=== PATIENT | male | born 1955 | race Caucasian/White ===

== ENCOUNTER 2016-09-17 10:09 | Emergency (ER) | payer OTHER ==
[2016-09-17] MEDS ORDERED: ASPIRIN 81 MG TABLET, CHEWABLE PO ONE (10:47)
--- NOTE | 2016-09-17 10:51 | ER Document Report ---
ED Medical Screen (RME) - General Chief Complaint: Irregular Pulse Stated Complaint: HEART PROBLEMS Time seen by provider: 10:47 Mode of Arrival: Ambulatory Information source: Patient Notes: 60-year-old male presents to ED after he was said to the emergency room from Dr. Brown. While at Dr. Brown's office his EKG showed a atrial flutter with a history of A. fib. He was there on his regular appointment. Patient did state that yesterday and today he had felt "yucky". He states that his whole family had some chronic illness and that he has an ileostomy and usually he needs to get up 3 times a night to empty this ileostomy last night he got up at least 6 times to empty. Liquid stools. He states he is not on any blood thinners or aspirin at home. According to Dr. Brown's note he needs to be started on blood thinners and he does not want him to be cardioverted but he is already converted himself. I have greeted and performed a rapid initial assessment of this patient. A comprehensive ED assessment and evaluation of the patient, analysis of test results and completion of medical decision making process will be conducted by an additional ED providers. TRAVEL OUTSIDE OF THE [place] IN LAST 30 DAYS: No - Related Data Allergies/Adverse Reactions: No Known Allergies Allergy (Verified 09/17/16 10:19) Past Medical History - Social History Family history: Reviewed & Not Pertinent - Past Medical History Cardiac Medical History: Reports: Hx Atrial Fibrillation - Due to chemotherapy, Hx Hypertension Denies: Hx Heart Attack Pulmonary Medical History: Denies: Hx Asthma, Hx Bronchitis, Hx COPD, Hx Pneumonia Neurological Medical History: Denies: Hx Seizures Endocrine Medical History: Reports: Hx Diabetes Mellitus Type 2 Renal/ Medical History: Denies: Hx Peritoneal Dialysis Malignancy Medical History: Reports Hx Colorectal Cancer GI Medical History: Denies: Hx Hiatal Hernia, Hx Ulcer Musculoskeltal Medical History: Reports Hx Arthritis Psychiatric Medical History: Reports: Hx Depression Infectious Medical History: Past Surgical History: Reports: Hx Bowel Diversion - April 2013 multiple abdominal surgeries and bowel resections with ileost, Hx Bowel Surgery - Colorectal mass resection about 4 years ago with colostomy., Hx Colostomy, Hx Ileostomy. Denies: Hx Open Heart Surgery, Hx Pacemaker - Immunizations Immunizations up to date: Yes Hx Diphtheria, Pertussis, Tetanus Vaccination: Yes Physical Exam - Vital signs Vitals: Temp Pulse Resp BP Pulse Ox 97.5 F 73 26 H 149/76 H 99 09/17/16 10:19 09/17/16 10:19 09/17/16 10:19 09/17/16 10:19 09/17/16 10:19 Course - Vital Signs Vital signs: Temp Pulse Resp BP Pulse Ox 97.5 F 73 26 H 149/76 H 99 09/17/16 10:19 09/17/16 10:19 09/17/16 10:19 09/17/16 10:19 09/17/16 10:19
[2016-09-17] MEDS ORDERED: ENOXAPARIN SODIUM INJ 80 MG/0.8 ML DISP.SYRIN SUBCUT SCH (11:15)
[2016-09-17 11:21] LABS: ABSOLUTE BASOPHILS # (AUTO) 0.1 10^3/uL (0.0-0.2); ABSOLUTE EOSINOPHILS # (AUTO) 0.1 10^3/uL (0.0-0.6); ABSOLUTE LYMPHOCYTES (AUTO) 1.6 10^3/uL (0.5-4.7); ABSOLUTE MONOCYTES (AUTO) 0.8 10^3/uL (0.1-1.4); ABSOLUTE NEUT (AUTO) 8.3 10^3/uL (1.7-8.2); BASOPHILS % (AUTO) 0.7 % (0-2); EOSINOPHILS % (AUTO) 1.2 % (0-6); HEMATOCRIT 43.8 % (37.9-51.0); HEMOGLOBIN 14.5 g/dL (13.5-17.0); HGB HCT DIFFERENCE -0.3; LYMPHOCYTES % (AUTO) 14.7 % (13-45); MEAN CORPUSCULAR HEMOGLOBIN 29.5 pg (27.0-33.4); MEAN CORPUSCULAR VOLUME 89 fl (80-97); MONOCYTES % (AUTO) 7.1 % (3-13); RED CELL DISTRIBUTION WIDTH 12.9 % (11.5-14.0); SEGMENTED NEUTROPHILS % (AUTO) 76.3 % (42-78); WHITE BLOOD COUNT 10.9 10^3/uL (4.0-10.5)
[2016-09-17 11:23] LABS: PROTHROMBIN TIME 11.6 SEC (11.4-15.4)
[2016-09-17 11:36] LABS: ALANINE AMINOTRANSFERASE 41 U/L (21-72); ALBUMIN 4.6 g/dL (3.5-5.0); ALKALINE PHOSPHATASE 104 U/L (38-126); ANION GAP 13 (5-19); ASPARTATE AMINO TRANSFERASE 33 U/L (17-59); BILIRUBIN,DIRECT 0.3 mg/dL (0.0-0.4); BILIRUBIN,TOTAL 0.3 mg/dL (0.2-1.3); BLOOD UREA NITROGEN 19 mg/dL (7-20); CALCIUM 10.1 mg/dL (8.4-10.2); CARBON DIOXIDE 25 mmol/L (22-30); CHLORIDE 105 mmol/L (98-107); CREATINE KINASE 135 U/L (55-170); GLUCOSE 110 mg/dL (75-110); MAGNESIUM 2.2 mg/dL (1.6-2.3); POTASSIUM 4.3 mmol/L (3.6-5.0); SODIUM 143.1 mmol/L (137-145); TOTAL PROTEIN 8.3 g/dL (6.3-8.2)
--- NOTE | 2016-09-17 11:37 | ER Document Report ---
ED General - General Chief Complaint: Irregular Pulse Stated Complaint: HEART PROBLEMS Time seen by provider: 11:00 Mode of Arrival: Ambulatory Information source: Patient Notes: 60-year-old male referred from Dr. Pineda's office for atrial flutter with request for admission and anticoagulation and echocardiogram. The patient has a history of postoperative atrial fibrillation for which she was on anticoagulation along with metoprolol and Cardizem ultimately converted back to sinus rhythm and has not been on anticoagulation and about 3 years. He continues on Cardizem ER 180 mg every morning and metoprolol 25 mg twice a day. 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 The patient reports several family members have nausea vomiting and diarrhea but the patient has not noted any such symptoms himself. He reports he had nonproductive cough a few weeks ago they attributed to viral syndrome or flu but says the cough is better now he denies fever, chills, chest pain, abdominal pain, back pain, hematemesis, blood or black stool in his ileostomy bag. He has had no sensation of fast slow or irregular heartbeat. He reports no other cardiac problems Physical Exam: General: Alert, appears well. HEENT: Normocephalic. Atraumatic. PERRLA. Extraocular movements intact. Oropharynx clear. Neck: Supple. Non-tender. Respiratory: No respiratory distress. Clear and equal breath sounds bilaterally. Cardiovascular: Regular rate and rhythm. Abdominal: Bowel sounds positive soft nontender nondistended no guarding rebound rigidity ileostomy site appears healthy well-healed midline incision Back: Non-tender. No deformity or step off. 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 Normal Mood. Skin: Warm. Dry. Normal color. TRAVEL OUTSIDE OF THE [place] IN LAST 30 DAYS: No - Related Data Allergies/Adverse Reactions: No Known Allergies Allergy (Verified 09/17/16 10:19) Past Medical History - General Information source: Patient - Social History Smoking Status: Former Smoker Family History: Reviewed & Not Pertinent Patient has suicidal ideation: No Patient has homicidal ideation: No - Past Medical History Cardiac Medical History: Reports: Hx Atrial Fibrillation - Due to chemotherapy, Hx Hypertension Denies: Hx Heart Attack Pulmonary Medical History: Denies: Hx Asthma, Hx Bronchitis, Hx COPD, Hx Pneumonia Neurological Medical History: Denies: Hx Seizures Endocrine Medical History: Reports: Hx Diabetes Mellitus Type 2 - Reports diet- controlled Renal/ Medical History: Denies: Hx Peritoneal Dialysis Malignancy Medical History: Reports Hx Colorectal Cancer - Status post postchemotherapy radiation and colectomy GI Medical History: Denies: Hx Hiatal Hernia, Hx Ulcer Musculoskeltal Medical History: Reports Hx Arthritis Psychiatric Medical History: Reports: Hx Depression Infectious Medical History: Past Surgical History: Reports: Hx Bowel Diversion - April 2013 multiple abdominal surgeries and bowel resections with ileost, Hx Bowel Surgery - Colorectal mass resection about 4 years ago with colostomy., Hx Colostomy, Hx Ileostomy, Other - Patient had left chest port with "removal due to clot. Denies: Hx Open Heart Surgery, Hx Pacemaker - Immunizations Immunizations up to date: Yes Hx Diphtheria, Pertussis, Tetanus Vaccination: Yes Review of Systems - Review of Systems Constitutional: denies: Chills, Fever EENT: denies: Ear pain, Nose pain, Throat pain Cardiovascular: denies: Chest pain, Palpitations, Dyspnea, Syncope Respiratory: denies: Cough, Short of breath Gastrointestinal: denies: Abdominal pain, Diarrhea, Nausea, Vomiting Genitourinary: denies: Burning, Flank pain Musculoskeletal: denies: Back pain, Muscle pain, Leg swelling Skin: denies: Rash Hematologic/Lymphatic: denies: Swollen glands Neurological/Psychological: denies: Weakness, Numbness Physical Exam - Vital signs Vitals: Temp Pulse Resp BP Pulse Ox 97.5 F 73 26 H 149/76 H 99 09/17/16 10:19 09/17/16 10:19 09/17/16 10:19 09/17/16 10:19 09/17/16 10:19 Course - Re-evaluation Re-evalutation: 09/17/16 12:01 Patient's potassium and magnesium are normal. He remained in sinus rhythm during his stay.. I discussed case with Dr. Pineda and he is comfortable with discharge. He requested we place patient on a Holter monitor and then he will follow up with the patient tomorrow and he requests that we not start the patient on any other anticoagulation until he has had a chance to review the Holter monitor. Patient is agreeable. - Vital Signs Vital signs: Temp Pulse Resp BP Pulse Ox 97.5 F 73 18 144/81 H 100 09/17/16 10:19 09/17/16 10:19 09/17/16 11:07 09/17/16 11:07 09/17/16 11:07 - Laboratory Result Diagrams: 09/17/16 11:10 09/17/16 11:10 Laboratory results interpreted by me: 09/17/16 09/17/16 11:10 11:10 WBC 10.9 H Absolute Neutrophils 8.3 H Creatinine 1.30 H Est GFR (Non-Af Amer) 56 L Total Protein 8.3 H - Diagnostic Test Radiology reviewed: Image reviewed, Reports reviewed - EKG Interpretation by Me Additional EKG results interpreted by me: 09/17/16 11:39 EKG reviewed by myself here shows sinus rhythm at 73 no acute changes EKG from office shows atrial flutter ventricular rate of 89 no acute changes Discharge - Discharge Clinical Impression: Atrial fib/flutter, transient Condition: Stable Disposition: HOME, SELF-CARE Instructions: Atrial Fibrillation ([facility]) Additional Instructions: Return to emergency department for chest pain, shortness of breath, or any sensation of fast, slow, or irregular heartbeat Referrals: RONDA PINEDA MD [EMERITUS] - Follow up tomorrow
[2016-09-17 11:48] LABS: CREATINE KINASE MB 1.92 ng/mL (<4.55)
[2016-09-17 11:49] LABS: TROPONIN I < 0.012 ng/mL
[2016-09-17] MEDS ORDERED: ENOXAPARIN SODIUM INJ 80 MG/0.8 ML DISP.SYRIN SUBCUT ONE (12:30)
[2016-09-17 14:08] VITALS: BP 137/79
--- NOTE | 2016-09-18 08:03 | EKG REPORT ---
SEVERITY:- OTHERWISE NORMAL ECG - SINUS RHYTHM BORDERLINE RIGHT AXIS DEVIATION : Confirmed by: Reza Brown MD 18-Sep-2016 08:02:24
== END 2016-09-17 13:00 | disposition home or self-care (01) ==
LOC: ER 10:09
DX: I48.91 Unspecified atrial fibrillation (principal); I48.92 Unspecified atrial flutter; R00.2 Palpitations; Z79.01 Long term (current) use of anticoagulants; Z79.899 Other long term (current) drug therapy; R05 Cough; Z87.891 Personal history of nicotine dependence
CPT/HCPCS: 93005; 99285; 96372; 36415; 82553; 82550; 83735; 84443; 85025; 85610; 85730; 80053; 84484; 71020; 93010; J1650

== ENCOUNTER → 2017-02-01 | Outpatient (CLI) | payer OTHER ==
[2017-02-01 08:35] LABS: ANION GAP 11 (5-19); BLOOD UREA NITROGEN 16 mg/dL (7-20); CALCIUM 10.3 mg/dL (8.4-10.2); CARBON DIOXIDE 26 mmol/L (22-30); CHLORIDE 104 mmol/L (98-107); CHOLESTEROL 175.86 mg/dL (0-200); CREATININE RESULT 1.09 mg/dL (0.52-1.25); Direct HDL 69 mg/dL (>40); GLUCOSE 118 mg/dL (75-110); POTASSIUM 4.8 mmol/L (3.6-5.0); SODIUM 140.8 mmol/L (137-145); TRIGLYCERIDES 159 mg/dL (<150)
[2017-02-01 08:45] LABS: DIRECT LDL 77 mg/dL (<100)
[2017-02-01 08:46] LABS: VLDL CHOLESTEROL 31.8 mg/dL (10-31)
== END ==
LOC: OD 07:25
PROVIDERS: ATTEND Internal Medicine Cardiovascular Disease
DX: E78.00 Pure hypercholesterolemia, unspecified (principal); Z79.899 Other long term (current) drug therapy
CPT/HCPCS: 36415; 80048; 80061

== ENCOUNTER → 2017-04-02 | Outpatient (CLI) | payer OTHER ==
--- NOTE | 2017-04-02 12:51 | RADIOLOGY REPORT (SQ) ---
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 Oral contrast. Images reviewed with lung, soft tissue, and bone win dows. Reconstructed coronal and sagittal MPR images reviewed. Delayed images for evaluation of the ur inary system also acquired. All images stored on PACS. All CT scanners at this facility use dose modulation, iterative reconstruction, and/or weight based d osing when appropriate to reduce radiation dose to as low as reasonably achievable (ALARA). [facility]: Dose Right [facility]: CareDose [facility]: Dose Right [facility]: Teradose 4D [facility]: [employer] CONTRAST TYPE AND DOSE: contrast/concentration: Isovue 370.00 mg/ml; Total Contrast Delivered: 78.0 ml; Total Saline Delivered: 67.0 ml RENAL FUNCTION: Creatinine 1.2 RADIATION DOSE: Up-to-date CT equipment and radiation dose reduction techniques were employed. CTDIv ol: 4.1 - 4.8 mGy. DLP: 439 mGy-cm.. LIMITATIONS: None. FINDINGS: LOWER CHEST: No significant findings. No nodules or infiltrates. LIVER: Hepatomegaly. No masses. No dilated ducts. SPLEEN: Normal size. No focal lesions. PANCREAS: No masses. No significant calcifications. No adjacent inflammation or peripancreatic fluid collections. Pancreatic duct not dilated. GALLBLADDER: Multiple small gallstones are present. There is no ductal dilatation. ADRENAL GLANDS: No significant masses or asymmetry. RIGHT KIDNEY AND URETER: No solid masses. No significant calcifications. No hydronephrosis or hyd roureter. LEFT KIDNEY AND URETER: No solid masses. No significant calcifications. No hydronephrosis or hydr oureter. AORTA AND VESSELS: No aneurysm. No dissection. Renal arteries, SMA, celiac without stenosis. RETROPERITONEUM: No retroperitoneal adenopathy, hemorrhage or masses. BOWEL AND PERITONEAL CAVITY: The patient has a patent ileostomy. The colon is been resected. The pa tient retains a small segment of rectum. APPENDIX: Surgically absent. PELVIS: No mass. No free fluid. Normal bladder. ABDOMINAL WALL: No masses. No hernias. Ileostomy. BONES: Lumbar degenerative disc changes at L3-4. No osseous lesions are seen. OTHER: No other significant finding. IMPRESSION: 1. Hepatomegaly. 2. Cholelithiasis with no ductal dilatation. 3. Patent ileostomy. 4. Osseous findings as described. TECHNICAL DOCUMENTATION: JOB ID: [id number] Quality ID # [id number]: Final reports with documentation of one or more dose reduction techniques (e.g., Au tomated exposure control, adjustment of the mA and/or kV according to patient size, use of iterative reconstruction technique) 2010 [employer]- All Rights Reserved
== END ==
LOC: RAD 09:17
PROVIDERS: ATTEND Surgery
DX: Z85.048 Personal history of other malignant neoplasm of rectum, rectosigmoid junction, and anus (principal); Z93.2 Ileostomy status; K80.20 Calculus of gallbladder without cholecystitis without obstruction; R16.0 Hepatomegaly, not elsewhere classified
CPT/HCPCS: 74177; 82565

== ENCOUNTER → 2018-08-18 | Outpatient (CLI) | payer OTHER ==
[2018-08-18 08:47] LABS: ANION GAP 10 (5-19); BLOOD UREA NITROGEN 20 mg/dL (7-20); CALCIUM 9.8 mg/dL (8.4-10.2); CARBON DIOXIDE 25 mmol/L (22-30); CHLORIDE 102 mmol/L (98-107); GLUCOSE 123 mg/dL (75-110); POTASSIUM 4.9 mmol/L (3.6-5.0); SODIUM 137.2 mmol/L (137-145)
== END ==
LOC: OD 07:16
PROVIDERS: ATTEND Internal Medicine Cardiovascular Disease
DX: I10 Essential (primary) hypertension (principal)
CPT/HCPCS: 36415; 80048

== ENCOUNTER 2018-10-06 10:21 | Emergency (ER) | payer OTHER ==
--- NOTE | 2018-10-06 10:55 | ER Document Report ---
ED Medical Screen (RME) - General Chief Complaint: High Blood Pressure Stated Complaint: CHEST PAIN Time Seen by Provider: 10/06/18 10:52 Primary Care Provider: RONDA PINEDA MD [Primary Care Provider] - Follow up as needed Mode of Arrival: Ambulatory Information source: Patient Notes: Patient was at a pain management appointment and was noted to have an elevated blood pressure reading of 170/110 with a low heart rate of 59. Patient states that the time he was not having any symptoms. Patient was told that he should come here to be evaluated for possible stroke although patient denies any weakness headache or strokelike symptoms at this time. Patient denies any chest pain symptoms at this time. I have greeted and performed a rapid initial assessment of this patient. A comprehensive ED assessment and evaluation of the patient, analysis of test results and completion of the medical decision making process will be conducted by additional ED providers. TRAVEL OUTSIDE OF THE [place] IN LAST 30 DAYS: No - Related Data Allergies/Adverse Reactions: No Known Allergies Allergy (Verified 10/06/18 10:48) Past Medical History - Social History Chew tobacco use (# tins/day): No Frequency of alcohol use: None Drug Abuse: None Family history: Reviewed & Not Pertinent - Past Medical History Cardiac Medical History: Reports: Hx Atrial Fibrillation - Due to chemotherapy, Hx Hypertension Denies: Hx Heart Attack Pulmonary Medical History: Denies: Hx Asthma, Hx Bronchitis, Hx COPD, Hx Pneumonia Neurological Medical History: Denies: Hx Seizures Endocrine Medical History: Reports: Hx Diabetes Mellitus Type 2 - Reports diet- controlled Renal/ Medical History: Denies: Hx Peritoneal Dialysis Malignancy Medical History: Reports Hx Colorectal Cancer - Status post postchemotherapy radiation and colectomy GI Medical History: Denies: Hx Hiatal Hernia, Hx Ulcer Musculoskeltal Medical History: Reports Hx Arthritis Psychiatric Medical History: Reports: Hx Depression Infectious Medical History: Past Surgical History: Reports: Hx Bowel Diversion - April 2013 multiple abdominal surgeries and bowel resections with ileost, Hx Bowel Surgery - Colorectal mass resection about 4 years ago with colostomy., Hx Colostomy, Hx Ileostomy, Other - Patient had left chest port with "removal due to clot. Denies: Hx Open Heart Surgery, Hx Pacemaker - Immunizations Immunizations up to date: Yes Hx Diphtheria, Pertussis, Tetanus Vaccination: Yes Physical Exam - Vital signs Vitals: Temp Pulse Resp BP Pulse Ox 98.1 F 57 L 16 145/66 H 100 10/06/18 10:27 10/06/18 10:27 10/06/18 10:27 10/06/18 10:27 10/06/18 10:27 - Cardiovascular Rhythm: Bradycardia Heart sounds: S1 appreciated, S2 appreciated Course - Vital Signs Vital signs: Temp Pulse Resp BP Pulse Ox 98.1 F 57 L 16 145/66 H 100 10/06/18 10:27 10/06/18 10:27 10/06/18 10:27 10/06/18 10:27 10/06/18 10:27 Doctor's Discharge - Discharge Referrals: RONDA PINEDA MD [Primary Care Provider] - Follow up as needed
[2018-10-06 11:15] LABS: ABSOLUTE BASOPHILS # (AUTO) 0.1 10^3/uL (0.0-0.2); ABSOLUTE EOSINOPHILS # (AUTO) 0.1 10^3/uL (0.0-0.6); ABSOLUTE LYMPHOCYTES (AUTO) 1.5 10^3/uL (0.5-4.7); ABSOLUTE MONOCYTES (AUTO) 0.5 10^3/uL (0.1-1.4); ABSOLUTE NEUT (AUTO) 7.9 10^3/uL (1.7-8.2); BASOPHILS % (AUTO) 0.6 % (0-2); EOSINOPHILS % (AUTO) 1.2 % (0-6); HEMOGLOBIN 12.4 g/dL (13.5-17.0); MEAN CORPUSCULAR HGB CONC 33.4 g/dL (32.0-36.0); MEAN CORPUSCULAR VOLUME 87 fl (80-97); MONOCYTES % (AUTO) 5.3 % (3-13); PLATELET COUNT 390 10^3/uL (150-450); RED BLOOD COUNT 4.26 10^6/uL (4.35-5.55); RED CELL DISTRIBUTION WIDTH 12.7 % (11.5-14.0); SEGMENTED NEUTROPHILS % (AUTO) 77.9 % (42-78); TOTAL CELLS COUNTED % (AUTO) 100 %; WHITE BLOOD COUNT 10.2 10^3/uL (4.0-10.5)
--- NOTE | 2018-10-06 11:36 | RADIOLOGY REPORT (SQ) ---
EXAM DESCRIPTION: CHEST 2 VIEWS COMPLETED DATE/TIME: 10/06/2018 11:28 am REASON FOR STUDY: elevated bp COMPARISON: None. EXAM PARAMETERS: NUMBER OF VIEWS: two views TECHNIQUE: Digital Frontal and Lateral radiographic views of the chest acquired. RADIATION DOSE: NA LIMITATIONS: none FINDINGS: LUNGS AND PLEURA: No opacities, masses or pneumothorax. No pleural effusion. MEDIASTINUM AND HILAR STRUCTURES: No masses or contour abnormalities. HEART AND VASCULAR STRUCTURES: Heart normal size. No evidence for failure. BONES: No acute findings. HARDWARE: None in the chest. OTHER: No other significant finding. IMPRESSION: NO ACUTE RADIOGRAPHIC FINDING IN THE CHEST. TECHNICAL DOCUMENTATION: JOB ID: [id number] [employer]- All Rights Reserved Reading location - IP/workstation name: [email or web address]
[2018-10-06 11:38] LABS: ALANINE AMINOTRANSFERASE 32 U/L (21-72); ALBUMIN 4.6 g/dL (3.5-5.0); ALKALINE PHOSPHATASE 105 U/L (38-126); ANION GAP 10 (5-19); ASPARTATE AMINO TRANSFERASE 40 U/L (17-59); BILIRUBIN,DIRECT 0.3 mg/dL (0.0-0.4); BILIRUBIN,TOTAL 0.4 mg/dL (0.2-1.3); BLOOD UREA NITROGEN 38 mg/dL (7-20); CALCIUM 10.3 mg/dL (8.4-10.2); CARBON DIOXIDE 22 mmol/L (22-30); CHLORIDE 104 mmol/L (98-107); GLUCOSE 143 mg/dL (75-110); POTASSIUM 5.2 mmol/L (3.6-5.0); SODIUM 136.4 mmol/L (137-145); TOTAL PROTEIN 8.6 g/dL (6.3-8.2)
[2018-10-06] MEDS ORDERED: NORMAL SALINE 1000 ML 1,000 ML IV ONE (12:47)
--- NOTE | 2018-10-06 13:24 | ER Document Report ---
Entered by AUSTYN AYALA SCRIBE 10/06/18 1259 Acting as scribe for:HETAL MONTOYA MD ED General - General Chief Complaint: High Blood Pressure Stated Complaint: CHEST PAIN Time Seen by Provider: 10/06/18 10:52 Primary Care Provider: RONDA PINEDA MD [EMERITUS] - Follow up as needed Mode of Arrival: Ambulatory Information source: Patient, [facility] Records Notes: Patient is a 62 year old male with colorectal cancer, HTN who presents to the emergency department complaining elevated blood pressure onset this morning. Patient states he presented to pain management this morning and was found to be hypertensive with a blood pressure of 170/110 with a heart rate of 59 bpm. Patient states he was instructed to come to the emergency department for further evaluation. He states he is and has been asymptomatic. He does report working outside over the last few days where it is been quite hot, and he has not been drinking as much water as he should. At triage, his blood pressure is 145/66 which is only slightly higher than his baseline according to his history. Patient reports having nausea and vomiting 2 weeks ago which completely resolved after taking Zofran once. Patient is currently prescribed metoprolol and lisinopril. TRAVEL OUTSIDE OF THE [place] IN LAST 30 DAYS: No - Related Data Allergies/Adverse Reactions: No Known Allergies Allergy (Verified 10/06/18 10:48) Past Medical History - General Information source: Patient, [facility] Records - Social History Smoking Status: Former Smoker Cigarette use (# per day): No Chew tobacco use (# tins/day): No Smoking Education Provided: No Frequency of alcohol use: None Drug Abuse: None Lives with: Spouse/Significant other Family History: Reviewed & Not Pertinent Patient has suicidal ideation: No Patient has homicidal ideation: No - Past Medical History Cardiac Medical History: Reports: Hx Atrial Fibrillation - Due to chemotherapy, Hx Hypertension Pulmonary Medical History: Neurological Medical History: Endocrine Medical History: Reports: Hx Diabetes Mellitus Type 2 - Reports diet- controlled Malignancy Medical History: Reports Hx Colorectal Cancer - Status post postchemotherapy radiation and colectomy GI Medical History: Musculoskeletal Medical History: Reports Hx Arthritis Psychiatric Medical History: Reports: Hx Depression Infectious Medical History: Past Surgical History: Reports: Hx Bowel Diversion - April 2013 multiple abdominal surgeries and bowel resections with ileost, Hx Bowel Surgery - Colorec le mass resection about 4 years ago with colostomy., Hx Colostomy, Hx Ileostomy, Other - Patient had left chest port with "removal due to clot - Immunizations Immunizations up to date: Yes Hx Diphtheria, Pertussis, Tetanus Vaccination: Yes Review of Systems - Review of Systems Constitutional: See HPI EENT: No symptoms reported Cardiovascular: No symptoms reported Respiratory: No symptoms reported Gastrointestinal: No symptoms reported Genitourinary: No symptoms reported Male Genitourinary: No symptoms reported Musculoskeletal: No symptoms reported Skin: No symptoms reported Hematologic/Lymphatic: No symptoms reported Neurological/Psychological: No symptoms reported -: Yes All other systems reviewed and negative Physical Exam - Vital signs Vitals: Temp Pulse Resp BP Pulse Ox 98.1 F 57 L 16 145/66 H 100 10/06/18 10:10/06/18 10:10/06/18 10:10/06/18 10:10/06/18 10:27 - Notes Notes: GENERAL: Alert, interacts well. No acute distress. HEAD: Normocephalic, atraumatic. EYES: Pupils equal, round, and reactive to light. Extraocular movements intact. ENT: Oral mucosa moist, tongue midline. NECK: Full range of motion. Supple. Trachea midline. LUNGS: Clear to auscultation bilaterally, no wheezes, rales, or rhonchi. No respiratory distress. HEART: Regular rate and rhythm. No murmurs, gallops, or rubs. ABDOMEN: Soft, non-tender. Ileostomy in RLQ. Non-distended. Bowel sounds present in all 4 quadrants. No guarding, rigidity, or rebound. EXTREMITIES: Moves all 4 extremities spontaneously. No edema, radial and dorsalis pedis pulses 2/4 bilaterally. No cyanosis. NEUROLOGICAL: Alert and oriented x3. Normal speech. PSYCH: Normal affect, normal mood. SKIN: Warm, dry, normal turgor. No rashes or lesions noted. Course - Vital Signs Vital signs: Temp Pulse Resp BP Pulse Ox 98.1 F 57 L 16 145/66 H 100 10/06/18 10:27 10/06/18 10:27 10/06/18 10:27 10/06/18 10:10/06/18 10:27 - Laboratory Result Diagrams: 10/06/18 11:00 10/06/18 11:00 Laboratory results interpreted by me: 10/06/18 10/06/18 11:00 11:00 RBC 4.26 L Hgb 12.4 L Hct 37.0 L Sodium 136.4 L Potassium 5.2 H BUN 38 H Creatinine 1.87 H Est GFR ( Amer) 44 L Est GFR (Non-Af Amer) 37 L Glucose 143 H Calcium 10.3 H Total Protein 8.6 H Discharge - Discharge Clinical Impression: Dehydration, Hyperkalemia Condition: Stable Disposition: HOME, SELF-CARE Additional Instructions: Dehydration Dehydration can result from vomiting or diarrhea, fever, or decreased intake of fluids. If severe, hospitalization and intravenous fluids may be required. Most cases are treated at home with fluids by mouth. For the next 24 hours, drink lots of clear fluids. Call the doctor or return for re-examination if you become progressively weak, vomit repeatedly, or have other new symptoms. Drink plenty of water today and this evening. Try to limit potassium in your diet. Follow-up with your doctor if any problems. RETURN TO THE EMERGENCY ROOM IF ANY NEW OR WORSENING SYMPTOMS. Referrals: RONDA PINEDA MD [EMERITUS] - Follow up as needed Scribe Attestation: 10/06/18 13:57 I personally performed the services described in the documentation, reviewed and edited the documentation which was dictated to the scribe in my presence, and it accurately records my words and actions. I personally performed the services described in the documentation, reviewed and edited the documentation which was dictated to the scribe in my presence, and it accurately records my words and actions.
[2018-10-06 15:17] VITALS: BP 140/61
--- NOTE | 2018-10-06 17:39 | EKG REPORT ---
SEVERITY:- OTHERWISE NORMAL ECG - SINUS RHYTHM ATRIAL PREMATURE COMPLEX : Confirmed by: Samantha Trevino 06-Oct-2018 17:38:06
== END 2018-10-06 15:22 | disposition home or self-care (01) ==
LOC: ER 10:21
DX: E86.0 Dehydration (principal); E87.5 Hyperkalemia; I10 Essential (primary) hypertension; R07.9 Chest pain, unspecified; R11.2 Nausea with vomiting, unspecified; Z87.891 Personal history of nicotine dependence; I48.91 Unspecified atrial fibrillation; E11.9 Type 2 diabetes mellitus without complications
CPT/HCPCS: 93005; 99284; 96360; 96361; 36415; 85025; 80053; 84484; 71046; 93010; J7030

== ENCOUNTER → 2019-06-14 | Outpatient (CLI) | payer MEDICARE, OTHER ==
[2019-06-14 09:06] LABS: ANION GAP 9 (5-19); BLOOD UREA NITROGEN 17 mg/dL (7-20); CALCIUM 9.9 mg/dL (8.4-10.2); CARBON DIOXIDE 27 mmol/L (22-30); CHLORIDE 101 mmol/L (98-107); CHOLESTEROL 164.74 mg/dL (0-200); GLUCOSE 125 mg/dL (75-110); POTASSIUM 4.8 mmol/L (3.6-5.0); TRIGLYCERIDES 98 mg/dL (<150)
[2019-06-14 09:16] LABS: DIRECT LDL 79 mg/dL (<100)
== END ==
LOC: OD 07:44
PROVIDERS: ATTEND Internal Medicine Cardiovascular Disease
DX: I10 Essential (primary) hypertension (principal); E78.2 Mixed hyperlipidemia; Z79.899 Other long term (current) drug therapy
CPT/HCPCS: 36415; 80048; 80061

== ENCOUNTER → 2019-07-11 | Outpatient (CLI) | payer MEDICARE, OTHER ==
[2019-07-11 11:16] LABS: MEAN CORPUSCULAR HEMOGLOBIN 30.1 pg (27.0-33.4); MEAN CORPUSCULAR HGB CONC 35.2 g/dL (32.0-36.0); MEAN CORPUSCULAR VOLUME 86 fl (80-97); PLATELET COUNT 339 10^3/uL (150-450); RED BLOOD COUNT 3.97 10^6/uL (4.35-5.55); RED CELL DISTRIBUTION WIDTH 13.7 % (11.5-14.0); WHITE BLOOD COUNT 8.1 10^3/uL (4.0-10.5)
[2019-07-11 11:18] LABS: APPEARANCE,URINE SLIGHTLY-CLOUDY; BILIRUBIN,URINE NEGATIVE (NEGATIVE); COLOR,URINE YELLOW; GLUCOSE, URINE >=500 mg/dL (NEGATIVE); KETONES,URINE NEGATIVE (NEGATIVE); LEUKOCYTE ESTERASE,URINE NEGATIVE (NEGATIVE); NITRITE,URINE NEGATIVE (NEGATIVE); PROTEIN,URINE NEGATIVE (NEGATIVE); URINE SPECIFIC GRAVITY 1.009; UROBILINOGEN,URINE NEGATIVE mg/dL (<2.0)
[2019-07-11 11:46] LABS: ALBUMIN 4.5 g/dL (3.5-5.0); ALKALINE PHOSPHATASE 102 U/L (38-126); ANION GAP 11 (5-19); ASPARTATE AMINO TRANSFERASE 26 U/L (17-59); BILIRUBIN,DIRECT 0.3 mg/dL (0.0-0.4); BILIRUBIN,TOTAL 0.3 mg/dL (0.2-1.3); BLOOD UREA NITROGEN 20 mg/dL (7-20); CARBON DIOXIDE 25 mmol/L (22-30); CHLORIDE 101 mmol/L (98-107); GLUCOSE 122 mg/dL (75-110); POTASSIUM 4.8 mmol/L (3.6-5.0); TOTAL PROTEIN 8.2 g/dL (6.3-8.2)
== END ==
LOC: OD 10:46
PROVIDERS: ATTEND Internal Medicine Cardiovascular Disease
DX: I48.92 Unspecified atrial flutter (principal); Z79.01 Long term (current) use of anticoagulants; Z79.899 Other long term (current) drug therapy
CPT/HCPCS: 36415; 80048; 80076; 81001; 82272; 83735; 85027; 85730

== ENCOUNTER 2019-08-17 13:16 | Emergency (ER) | payer OTHER, MEDICARE ==
--- NOTE | 2019-08-17 13:29 | ER Document Report ---
ED Medical Screen (RME) - General Chief Complaint: Abnormal Lab Results Stated Complaint: ABNORMAL LABS Time Seen by Provider: 08/17/19 13:26 Primary Care Provider: RONDA PINEDA MD [Primary Care Provider] - Follow up as needed Mode of Arrival: Ambulatory Information source: Patient Notes: 63-year-old male presented to ED for elevated potassium. He is being treated fo r A. fib he was in A. fib there having temporarily out of A. fib he also had high blood pressure. He was started on the liquids for the A. fib to prevent clots. He states he went to his primary care doctor had labs and they told him he had a elevated potassium and needed to come to the emergency room for evaluation. Will repeat the chemistry and CBC and then reassess patient. I have greeted and performed a rapid initial assessment of this patient. A comprehensive ED assessment and evaluation of the patient, analysis of test results and completion of medical decision making process will be conducted by an additional ED providers. TRAVEL OUTSIDE OF THE [place] IN LAST 30 DAYS: No - Related Data Allergies/Adverse Reactions: No Known Allergies Allergy (Verified 08/17/19 13:21) Past Medical History - Social History Chew tobacco use (# tins/day): No Frequency of alcohol use: None Drug Abuse: None Family history: Reviewed & Not Pertinent - Past Medical History Cardiac Medical History: Reports: Hx Atrial Fibrillation - Due to chemotherapy, Hx Hypertension Denies: Hx Heart Attack Pulmonary Medical History: Denies: Hx Asthma, Hx Bronchitis, Hx COPD, Hx Pneumonia Neurological Medical History: Denies: Hx Seizures Endocrine Medical History: Reports: Hx Diabetes Mellitus Type 2 - Reports diet- controlled Renal/ Medical History: Denies: Hx Peritoneal Dialysis Malignancy Medical History: Reports Hx Colorectal Cancer - Status post postchemotherapy radiation and colectomy GI Medical History: Denies: Hx Hiatal Hernia, Hx Ulcer Musculoskeltal Medical History: Reports Hx Arthritis Psychiatric Medical History: Reports: Hx Depression Infectious Medical History: Past Surgical History: Reports: Hx Bowel Diversion - April 2013 multiple abdominal surgeries and bowel resections with ileost, Hx Bowel Surgery - Colorectal mass resection about 4 years ago with colostomy., Hx Colostomy, Hx Ileostomy, Other - Patient had left chest port with "removal due to clot. Denies: Hx Open Heart Surgery, Hx Pacemaker - Immunizations Immunizations up to date: Yes Hx Diphtheria, Pertussis, Tetanus Vaccination: Yes Physical Exam - Vital signs Vitals: Temp Pulse Resp BP Pulse Ox 98.0 F 63 16 146/59 H 98 08/17/19 13:20 08/17/19 13:20 08/17/19 13:20 08/17/19 13:20 08/17/19 13:20 Course - Vital Signs Vital signs: Temp Pulse Resp BP Pulse Ox 98.0 F 63 16 146/59 H 98 08/17/19 13:20 08/17/19 13:20 08/17/19 13:20 08/17/19 13:20 08/17/19 13:20 Doctor's Discharge - Discharge Referrals: RONDA PINEDA MD [Primary Care Provider] - Follow up as needed
--- NOTE | 2019-08-17 13:36 | ER Document Report ---
ED General - General Chief Complaint: Abnormal Lab Results Stated Complaint: ABNORMAL LABS Time Seen by Provider: 08/17/19 13:26 Primary Care Provider: RONDA PINEDA MD [EMERITUS] - Follow up as needed Mode of Arrival: Ambulatory Notes: 63-year-old male presents with abnormal labs. He has no symptoms. He has an ileostomy and normal urinary anatomy and says that 2 days ago he had about 2 days of solid liquid ostomy output that he could not keep up with orally. He hydrated well and then last night did not drink as much. Today he is only had ice tea. He went for routine labs "to check my blood thinner" and was sent here for incidental hyperkalemia with acute kidney injury. No trouble starting and stopping urine stream no back pain no fever. Does not take a diuretic. TRAVEL OUTSIDE OF THE [place] IN LAST 30 DAYS: No - Related Data Allergies/Adverse Reactions: No Known Allergies Allergy (Verified 08/17/19 13:21) Past Medical History - General Information source: Patient - Social History Smoking Status: Never Smoker Chew tobacco use (# tins/day): No Frequency of alcohol use: None Drug Abuse: None Family History: Reviewed & Not Pertinent Patient has suicidal ideation: No Patient has homicidal ideation: No - Past Medical History Cardiac Medical History: Reports: Hx Atrial Fibrillation - Due to chemotherapy, Hx Hypertension Denies: Hx Heart Attack Pulmonary Medical History: Denies: Hx Asthma, Hx Bronchitis, Hx COPD, Hx Pneumonia Neurological Medical History: Denies: Hx Seizures Endocrine Medical History: Reports: Hx Diabetes Mellitus Type 2 - Reports diet- controlled Renal/ Medical History: Denies: Hx Peritoneal Dialysis Malignancy Medical History: Reports Hx Colorectal Cancer - Status post postchemotherapy radiation and colectomy GI Medical History: Denies: Hx Hiatal Hernia, Hx Ulcer Musculoskeletal Medical History: Reports Hx Arthritis Psychiatric Medical History: Reports: Hx Depression Infectious Medical History: Past Surgical History: Reports: Hx Bowel Diversion - April 2013 multiple abdominal surgeries and bowel resections with ileost, Hx Bowel Surgery - Colore ctal mass resection about 4 years ago with colostomy., Hx Colostomy, Hx Ileostomy, Other - Patient had left chest port with "removal due to clot. Denies: Hx Open Heart Surgery, Hx Pacemaker - Immunizations Immunizations up to date: Yes Hx Diphtheria, Pertussis, Tetanus Vaccination: Yes Review of Systems - Review of Systems Notes: REVIEW OF SYSTEMS GEN: Denies fever, chills, weight loss ENT: Denies sore throat, nasal discharge, ear pain EYES: Denies blurry vision, eye pain, discharge CV: Denies chest pain, palpitations, edema RESP: Denies cough, shortness of breath, wheezing GI: Creased ostomy output a MSK: Denies joint pain/swelling, edema, SKIN: Denies rash, skin lesions LYMPH: Denies swollen glands/lymph nodes NEURO: Denies headache, focal weakness or numbness, dizziness PSYCH: Denies depression, suicidal or homicidal ideation PHYSICAL EXAMINATION General: No acute distress, well-nourished Head: Atraumatic, normocephalic ENT: Mouth normal, oropharynx moist, no exudates or tonsillar enlargement Eyes: Conjunctiva normal, pupils equal, lids normal Neck: No JVD, supple, no guarding CVS: Normal rate, regular rhythm, no murmurs Resp: No resp distress, equal and normal breath sounds bilaterally GI: Healthy pink ileostomy Ext: No deformities, no edema, normal range of motion in upper and lower ext Back: No CVA or midline TTP Skin: No rash, warm Lymphatic: No lymphadeopathy noted Neuro: Awake, alert. Face symmetric. GCS 15. Physical Exam - Vital signs Vitals: Temp Pulse Resp BP Pulse Ox 98.0 F 63 16 146/59 H 98 08/17/19 13:20 08/17/19 13:20 08/17/19 13:20 08/17/19 13:20 08/17/19 13:20 Course - Re-evaluation Re-evalutation: 08/17/19 13:36 Incidental acute kidney injury with hyperkalemia We will check EKG to rule out changeshemodynamically stable Likely secondary to prerenal azotemia/dehydration from increased ostomy output and inadequate oral intake. - Vital Signs Vital signs: Temp Pulse Resp BP Pulse Ox 98.0 F 63 16 146/59 H 98 08/17/19 13:20 08/17/19 13:20 08/17/19 13:20 08/17/19 13:20 08/17/19 13:20 - Laboratory Result Diagrams: 08/17/19 13:45 08/17/19 13:45 Laboratory results interpreted by me: 08/17/19 08/17/19 13:45 13:45 RBC 4.13 L Hgb 12.3 L Hct 35.4 L Sodium 130.0 L Potassium 5.5 H Carbon Dioxide 21 L BUN 63 H Creatinine 2.74 H Est GFR ( Amer) 28 L Est GFR (MDRD) Non-Af 23 L Glucose 153 H Total Protein 8.6 H Discharge - Discharge Clinical Impression: Prerenal azotemia, Hyperkalemia Condition: Good Disposition: HOME, SELF-CARE Additional Instructions: Please follow-up with your personal doctor within 2 to 3 days for repeat lab testing specifically potassium and kidney function. Please drink plenty of f luids, avoid tea and avoid highpotassium foods such as avocado and banana Referrals: RONDA PINEDA MD [EMERITUS] - Follow up in 3-5 days
[2019-08-17 13:58] LABS: ABSOLUTE BASOPHILS # (AUTO) 0.1 10^3/uL (0.0-0.2); ABSOLUTE EOSINOPHILS # (AUTO) 0.2 10^3/uL (0.0-0.6); ABSOLUTE LYMPHOCYTES (AUTO) 1.5 10^3/uL (0.5-4.7); ABSOLUTE MONOCYTES (AUTO) 0.6 10^3/uL (0.1-1.4); ABSOLUTE NEUT (AUTO) 6.6 10^3/uL (1.7-8.2); BASOPHILS % (AUTO) 0.6 % (0-2); EOSINOPHILS % (AUTO) 2.4 % (0-6); HEMATOCRIT 35.4 % (37.9-51.0); HEMOGLOBIN 12.3 g/dL (13.5-17.0); MEAN CORPUSCULAR HEMOGLOBIN 29.8 pg (27.0-33.4); MEAN CORPUSCULAR HGB CONC 34.6 g/dL (32.0-36.0); MEAN CORPUSCULAR VOLUME 86 fl (80-97); MONOCYTES % (AUTO) 7.2 % (3-13); PLATELET COUNT 421 10^3/uL (150-450); RED BLOOD COUNT 4.13 10^6/uL (4.35-5.55); RED CELL DISTRIBUTION WIDTH 13.4 % (11.5-14.0); SEGMENTED NEUTROPHILS % (AUTO) 72.8 % (42-78); TOTAL CELLS COUNTED % (AUTO) 100 %
[2019-08-17 14:19] LABS: ALBUMIN 4.6 g/dL (3.5-5.0); ALKALINE PHOSPHATASE 117 U/L (38-126); ANION GAP 11 (5-19); ASPARTATE AMINO TRANSFERASE 22 U/L (17-59); BILIRUBIN,DIRECT 0.2 mg/dL (0.0-0.4); BILIRUBIN,TOTAL 0.2 mg/dL (0.2-1.3); BLOOD UREA NITROGEN 63 mg/dL (7-20); CALCIUM 9.6 mg/dL (8.4-10.2); CARBON DIOXIDE 21 mmol/L (22-30); CHLORIDE 98 mmol/L (98-107); GLUCOSE 153 mg/dL (75-110); POTASSIUM 5.5 mmol/L (3.6-5.0); TOTAL PROTEIN 8.6 g/dL (6.3-8.2)
[2019-08-17] MEDS ORDERED: DEXTROSE 50%-WATER 25 GM/50 ML DISP.SYRIN IV ONE (14:20)
[2019-08-17] MEDS ORDERED: INSULIN REG, HUMAN 100 UNIT/ML 3 ML VIAL (PYX) IV ONE (14:20)
[2019-08-17] MEDS ORDERED: NORMAL SALINE 1000 ML 1,000 ML IV ONE (14:21)
[2019-08-17 16:59] LABS: ANION GAP 9 (5-19); BLOOD UREA NITROGEN 60 mg/dL (7-20); CALCIUM 9.2 mg/dL (8.4-10.2); CARBON DIOXIDE 19 mmol/L (22-30); CHLORIDE 104 mmol/L (98-107); GLUCOSE 82 mg/dL (75-110); POTASSIUM 5.1 mmol/L (3.6-5.0)
[2019-08-17 17:18] VITALS: BP 133/57
--- NOTE | 2019-08-18 16:19 | EKG REPORT ---
SEVERITY:- NORMAL ECG - SINUS RHYTHM : Confirmed by: Samantha Trevino 18-Aug-2019 16:18:17
== END 2019-08-17 17:17 | disposition home or self-care (01) ==
LOC: ER 13:16
DX: E87.5 Hyperkalemia (principal); N17.9 Acute kidney failure, unspecified; R79.89 Other specified abnormal findings of blood chemistry; Z93.2 Ileostomy status; I10 Essential (primary) hypertension; E11.9 Type 2 diabetes mellitus without complications; Z85.048 Personal history of other malignant neoplasm of rectum, rectosigmoid junction, and anus; Z92.3 Personal history of irradiation; Z92.21 Personal history of antineoplastic chemotherapy
CPT/HCPCS: 93005; 99285; 36415; 85025; 87070; 93010; J3490; J1815; J7030

== ENCOUNTER → 2019-08-17 | Outpatient (CLI) | payer MEDICARE, OTHER ==
[2019-08-17 11:04] LABS: ALBUMIN 4.5 g/dL (3.5-5.0); ALKALINE PHOSPHATASE 108 U/L (38-126); ANION GAP 11 (5-19); ASPARTATE AMINO TRANSFERASE 26 U/L (17-59); BILIRUBIN,TOTAL 0.3 mg/dL (0.2-1.3); BLOOD UREA NITROGEN 68 mg/dL (7-20); CARBON DIOXIDE 20 mmol/L (22-30); CHLORIDE 98 mmol/L (98-107); GLUCOSE 136 mg/dL (75-110); TOTAL PROTEIN 8.2 g/dL (6.3-8.2)
[2019-08-17 11:12] LABS: POTASSIUM 6.3 mmol/L (3.6-5.0)
== END ==
LOC: OD 09:53
PROVIDERS: ATTEND Internal Medicine Cardiovascular Disease
DX: I48.92 Unspecified atrial flutter (principal); Z79.01 Long term (current) use of anticoagulants; Z79.899 Other long term (current) drug therapy
CPT/HCPCS: 36415; 80048; 80076; 83735; 85730

== ENCOUNTER → 2019-09-20 | Outpatient (CLI) | payer MEDICARE, OTHER ==
[2019-09-20 10:50] LABS: APPEARANCE,URINE SLIGHTLY-CLOUDY; BILIRUBIN,URINE NEGATIVE (NEGATIVE); COLOR,URINE YELLOW; GLUCOSE, URINE 50 mg/dL (NEGATIVE); KETONES,URINE NEGATIVE (NEGATIVE); LEUKOCYTE ESTERASE,URINE NEGATIVE (NEGATIVE); NITRITE,URINE NEGATIVE (NEGATIVE); PROTEIN,URINE NEGATIVE (NEGATIVE); URINE SPECIFIC GRAVITY 1.011; UROBILINOGEN,URINE NEGATIVE mg/dL (<2.0)
[2019-09-20 11:03] LABS: ALBUMIN 4.1 g/dL (3.5-5.0); ANION GAP 7 (5-19); BLOOD UREA NITROGEN 19 mg/dL (7-20); CALCIUM 9.3 mg/dL (8.4-10.2); CARBON DIOXIDE 28 mmol/L (22-30); CHLORIDE 100 mmol/L (98-107); GLUCOSE 164 mg/dL (75-110); PHOSPHORUS 3.5 mg/dL (2.5-4.5); POTASSIUM 4.8 mmol/L (3.6-5.0)
[2019-09-21 10:36] LABS: CREATININE URINE 93.8 mg/dL (Not Estab.); MICROALBUMIN URINE 9.4 ug/mL (Not Estab.)
== END ==
LOC: OD 10:06
PROVIDERS: ATTEND Internal Medicine Nephrology
DX: N17.9 Acute kidney failure, unspecified (principal); E87.5 Hyperkalemia; I10 Essential (primary) hypertension
CPT/HCPCS: 36415; 80069; 81001; 82043; 82570

== ENCOUNTER → 2019-10-02 | Outpatient (CLI) | payer MEDICARE, OTHER ==
--- NOTE | 2019-10-02 10:59 | RADIOLOGY REPORT (SQ) ---
EXAM DESCRIPTION: DUPLEX ART/MAIA FLOW COMPLETE IMAGES COMPLETED DATE/TIME: 10/02/2019 10:42 am REASON FOR STUDY: ACUTE KIDNEY FAILURE, UNSPECIFIED/ESSENTIAL (PRIMARY) HYPERTENSION N17.9 ACUTE KI DNEY FAILURE, UNSPECIFIED I10 ESSENTIAL (PRIMARY) HYPERTENSION COMPARISON: None. TECHNIQUE: Realtime and static grayscale images acquired. Selected color Doppler, velocities and spe ctral images recorded. LIMITATIONS: None. FINDINGS: RIGHT KIDNEY: RENAL ARTERY VELOCITIES: 67.6 cm/sec at the renal hilum. The artery could not be visualize proximal so this. Segmental artery velocity 59.6 cm/sec. RENAL VEIN: Color doppler flow present, patent. VELOCITY RATIO: 1.76. Normal waveforms. KIDNEY: Normal size. No significant pathology. LEFT KIDNEY: RENAL ARTERY VELOCITIES: 60.6 cm/sec at the renal hilum. The vessel could not be visualized proximal to this. Segmental artery velocity 35.1 cm/sec. RENAL VEIN: Color doppler flow present, patent. VELOCITY RATIO: 1.58. Normal waveforms. KIDNEY: Normal size. No significant pathology. BLADDER: Normal. OTHER: Review of the CT abdomen pelvis from March 2017 demonstrates mild atherosclerotic plaque at the origin of the left renal artery but the main renal arteries are widely patent. IMPRESSION: NO DOPPLER EVIDENCE OF HEMODYNAMICALLY SIGNIFICANT RENAL ARTERY STENOSIS. COMMENT: NORMAL RENAL ARTERY/AORTA VELOCITY RATIO IS LESS THAN OR EQUAL TO 3.5. TECHNICAL DOCUMENTATION: JOB ID: [id number] 2010 [employer]- All Rights Reserved Reading location - IP/workstation name: [email or web address]
== END ==
LOC: RAD 09:17
PROVIDERS: ATTEND Internal Medicine Nephrology
DX: N17.9 Acute kidney failure, unspecified (principal); I10 Essential (primary) hypertension
CPT/HCPCS: 93975

== ENCOUNTER → 2019-11-16 | Outpatient (CLI) | payer MEDICARE, OTHER ==
[2019-11-16 09:54] LABS: APPEARANCE,URINE CLEAR; BILIRUBIN,URINE NEGATIVE (NEGATIVE); COLOR,URINE YELLOW; GLUCOSE, URINE NEGATIVE (NEGATIVE); KETONES,URINE NEGATIVE (NEGATIVE); LEUKOCYTE ESTERASE,URINE NEGATIVE (NEGATIVE); NITRITE,URINE NEGATIVE (NEGATIVE); PROTEIN,URINE NEGATIVE (NEGATIVE); URINE SPECIFIC GRAVITY 1.008; UROBILINOGEN,URINE NEGATIVE mg/dL (<2.0)
[2019-11-16 09:56] LABS: APPEARANCE,URINE CLEAR; BILIRUBIN,URINE NEGATIVE (NEGATIVE); COLOR,URINE YELLOW; GLUCOSE, URINE NEGATIVE (NEGATIVE); KETONES,URINE NEGATIVE (NEGATIVE); LEUKOCYTE ESTERASE,URINE NEGATIVE (NEGATIVE); NITRITE,URINE NEGATIVE (NEGATIVE); PROTEIN,URINE NEGATIVE (NEGATIVE); URINE SPECIFIC GRAVITY 1.008; UROBILINOGEN,URINE NEGATIVE mg/dL (<2.0)
[2019-11-16 10:10] LABS: HEMATOCRIT 39.9 % (37.9-51.0); HEMOGLOBIN 13.5 g/dL (13.5-17.0); MEAN CORPUSCULAR HEMOGLOBIN 29.7 pg (27.0-33.4); MEAN CORPUSCULAR VOLUME 87 fl (80-97); PLATELET COUNT 388 10^3/uL (150-450); RED BLOOD COUNT 4.56 10^6/uL (4.35-5.55); RED CELL DISTRIBUTION WIDTH 13.7 % (11.5-14.0); WHITE BLOOD COUNT 10.4 10^3/uL (4.0-10.5)
[2019-11-16 10:25] LABS: ALBUMIN 4.5 g/dL (3.5-5.0); ALKALINE PHOSPHATASE 98 U/L (38-126); ANION GAP 8 (5-19); ASPARTATE AMINO TRANSFERASE 23 U/L (17-59); BILIRUBIN,TOTAL 0.3 mg/dL (0.2-1.3); BLOOD UREA NITROGEN 18 mg/dL (7-20); CALCIUM 10.1 mg/dL (8.4-10.2); CARBON DIOXIDE 26 mmol/L (22-30); CHLORIDE 103 mmol/L (98-107); GLUCOSE 140 mg/dL (75-110); POTASSIUM 4.5 mmol/L (3.6-5.0)
[2019-11-16 10:26] LABS: ALBUMIN 4.5 g/dL (3.5-5.0); ANION GAP 7 (5-19); BLOOD UREA NITROGEN 18 mg/dL (7-20); CARBON DIOXIDE 26 mmol/L (22-30); CHLORIDE 103 mmol/L (98-107); GLUCOSE 140 mg/dL (75-110); PHOSPHORUS 3.3 mg/dL (2.5-4.5); POTASSIUM 4.6 mmol/L (3.6-5.0)
[2019-11-17 12:36] LABS: CREATININE URINE 69.7 mg/dL (Not Estab.); MICROALBUMIN URINE 14.2 ug/mL (Not Estab.)
== END ==
LOC: OD 08:51
PROVIDERS: ATTEND Internal Medicine Cardiovascular Disease
DX: N17.9 Acute kidney failure, unspecified (principal); I48.91 Unspecified atrial fibrillation; Z79.01 Long term (current) use of anticoagulants; Z79.899 Other long term (current) drug therapy
CPT/HCPCS: 36415; 80048; 80069; 80076; 81001; 82043; 82272; 82570; 83735; 85027; 85730

== ENCOUNTER → 2020-02-14 | Outpatient (CLI) | payer MEDICARE, OTHER ==
[2020-02-14 10:24] LABS: HEMATOCRIT 36.5 % (37.9-51.0); HEMOGLOBIN 12.6 g/dL (13.5-17.0); MEAN CORPUSCULAR HEMOGLOBIN 28.9 pg (27.0-33.4); MEAN CORPUSCULAR HGB CONC 34.5 g/dL (32.0-36.0); MEAN CORPUSCULAR VOLUME 84 fl (80-97); PLATELET COUNT 317 10^3/uL (150-450); RED BLOOD COUNT 4.35 10^6/uL (4.35-5.55); RED CELL DISTRIBUTION WIDTH 15.4 % (11.5-14.0); WHITE BLOOD COUNT 9.3 10^3/uL (4.0-10.5)
[2020-02-14 10:29] LABS: APPEARANCE,URINE CLEAR; BILIRUBIN,URINE NEGATIVE (NEGATIVE); COLOR,URINE YELLOW; GLUCOSE, URINE NEGATIVE (NEGATIVE); KETONES,URINE NEGATIVE (NEGATIVE); LEUKOCYTE ESTERASE,URINE NEGATIVE (NEGATIVE); NITRITE,URINE NEGATIVE (NEGATIVE); PROTEIN,URINE NEGATIVE (NEGATIVE); UROBILINOGEN,URINE NEGATIVE mg/dL (<2.0)
[2020-02-14 10:52] LABS: ALBUMIN 4.1 g/dL (3.5-5.0); ALKALINE PHOSPHATASE 101 U/L (38-126); ANION GAP 7 (5-19); ASPARTATE AMINO TRANSFERASE 22 U/L (17-59); BILIRUBIN,DIRECT 0.2 mg/dL (0.0-0.4); BILIRUBIN,TOTAL 0.4 mg/dL (0.2-1.3); BLOOD UREA NITROGEN 17 mg/dL (7-20); CALCIUM 9.6 mg/dL (8.4-10.2); CARBON DIOXIDE 29 mmol/L (22-30); CHLORIDE 101 mmol/L (98-107); GLUCOSE 176 mg/dL (75-110); POTASSIUM 4.6 mmol/L (3.6-5.0); TOTAL PROTEIN 7.2 g/dL (6.3-8.2)
== END ==
LOC: OD 09:30
PROVIDERS: ATTEND Internal Medicine Cardiovascular Disease
DX: I48.92 Unspecified atrial flutter (principal); Z79.01 Long term (current) use of anticoagulants; Z79.899 Other long term (current) drug therapy
CPT/HCPCS: 36415; 80048; 80076; 81001; 82272; 83735; 85027; 85730

== ENCOUNTER 2020-05-15 08:14 | Emergency (ER) | payer MEDICARE, OTHER ==
[2020-05-15] MEDS ORDERED: NORMAL SALINE 1000 ML 1,000 ML IV ONE ×2 (08:43→10:32)
--- NOTE | 2020-05-15 09:11 | RADIOLOGY REPORT (SQ) ---
EXAM DESCRIPTION: ACUTE ABDOMEN SERIES IMAGES COMPLETED DATE/TIME: 05/15/2020 9:01 am REASON FOR STUDY: Abdominal distention, pain, no ileostomy output COMPARISON: 04/18/2013 NUMBER OF VIEWS: Three views. TECHNIQUE: Frontal chest, supine abdomen and upright/decubitus abdomen radiographic images acquired. LIMITATIONS: None. FINDINGS: CHEST: Lungs clear of infiltrates. FREE AIR: None. No abnormal gas collections. BOWEL GAS PATTERN: Small-bowel distention. Ostomy site is noted in the right lower quadrant. Scatte red air-fluid levels on the upright view. CALCIFICATIONS: No suspicious calcifications. HARDWARE: None in the abdomen. SOFT TISSUES: No gross mass or suggestion of organomegaly. BONES: No acute fracture. No worrisome bone lesions. OTHER: No other significant finding. IMPRESSION: Dilated small bowel with scattered air-fluid levels. Differential includes ileus versus distal small-bowel obstruction. TECHNICAL DOCUMENTATION: JOB ID: [id number] 2010 [employer]- All Rights Reserved Reading location - IP/workstation name: [email or web address]
[2020-05-15 09:44] LABS: ABSOLUTE LYMPHOCYTES (AUTO) 0.9 10^3/uL (0.5-4.7); ABSOLUTE MONOCYTES (AUTO) 1.1 10^3/uL (0.1-1.4); ABSOLUTE NEUT (AUTO) 9.3 10^3/uL (1.7-8.2); BASOPHILS % (AUTO) 0.3 % (0-2); EOSINOPHILS % (AUTO) 0.4 % (0-6); HEMOGLOBIN 12.6 g/dL (13.5-17.0); MEAN CORPUSCULAR HEMOGLOBIN 28.3 pg (27.0-33.4); MEAN CORPUSCULAR VOLUME 83 fl (80-97); MONOCYTES % (AUTO) 9.5 % (3-13); PLATELET COUNT 411 10^3/uL (150-450); RED BLOOD COUNT 4.45 10^6/uL (4.35-5.55); RED CELL DISTRIBUTION WIDTH 12.9 % (11.5-14.0); SEGMENTED NEUTROPHILS % (AUTO) 81.8 % (42-78); TOTAL CELLS COUNTED % (AUTO) 100 %; WHITE BLOOD COUNT 11.3 10^3/uL (4.0-10.5)
[2020-05-15 10:00] LABS: ALBUMIN 4.4 g/dL (3.5-5.0); ALKALINE PHOSPHATASE 108 U/L (38-126); ANION GAP 7 (5-19); ASPARTATE AMINO TRANSFERASE 23 U/L (17-59); BILIRUBIN,DIRECT 0.1 mg/dL (0.0-0.4); BILIRUBIN,TOTAL 0.5 mg/dL (0.2-1.3); BLOOD UREA NITROGEN 16 mg/dL (7-20); CARBON DIOXIDE 33 mmol/L (22-30); CHLORIDE 96 mmol/L (98-107); CREATINE KINASE 72 U/L (55-170); GLUCOSE 175 mg/dL (75-110); POTASSIUM 4.1 mmol/L (3.6-5.0); TOTAL PROTEIN 8.2 g/dL (6.3-8.2)
--- NOTE | 2020-05-15 13:42 | ER Document Report ---
Entered by TYREE CRANDALL SCRIBE 05/15/20 0835 Acting as scribe for:HETAL MONTOYA MD ED GI/ - General Chief Complaint: Abdominal Pain Stated Complaint: ABDOMINAL PAIN Time Seen by Provider: 05/15/20 08:33 Primary Care Provider: RONDA PINEDA MD [Primary Care Provider] - Follow up as needed Mode of Arrival: Wheelchair Information source: Patient Notes: This 64 year old male patient with a history of colorectal cancer status post chemotherapy radiation and total colectomy with ileostomy presents to the ED today with complaints of decreased ileostomy output that started x2 days ago. Patient reports that he woke up Wednesday morning and noticed that there wasn't any stool in his ileostomy bag. He states "what I put out in the last x2 days is what I normally put out in x1 day." He is now complaining of abdominal distension and pain. He notes taking Miralax and Magnesium Citrate yesterday without resolve. Patient has a history of Atrial fibrillation on Eliquis and had a cardiac ablation approximately x2 weeks ago. The patient did call me yesterday with his concerns, also informed me he ate a lot of cheese last weekend. I asked him to take MiraLAX and to drink a few ounces of magnesium citrate. Later in the course of the visit, I learned that he bought a bottle of magnesium citrate tablets and took 2 of those. TRAVEL OUTSIDE OF THE [place] IN LAST 30 DAYS: No - Related Data Allergies/Adverse Reactions: No Known Allergies Allergy (Verified 05/15/20 08:20) Past Medical History - General Information source: Patient, [facility] Records - Social History Smoking Status: Unknown if Ever Smoked Smoking Education Provided: No Lives with: Spouse/Significant other Family History: Reviewed & Not Pertinent - Past Medical History Cardiac Medical History: Reports: Hx Atrial Fibrillation - Due to chemotherapy, Hx Hypertension Pulmonary Medical History: Neurological Medical History: Endocrine Medical History: Reports: Hx Diabetes Mellitus Type 2 - Reports diet- controlled Malignancy Medical History: Reports Hx Colorectal Cancer - Status post chemotherapy radiation and colectomy GI Medical History: Musculoskeletal Medical History: Reports Hx Arthritis Psychiatric Medical History: Reports: Hx Depression Infectious Medical History: Past Surgical History: Reports: Hx Bowel Diversion - April 2013 multiple abdominal surgeries and bowel resections with ileost, Hx Bowel Surgery - Colorectal mass resection about 4 years ago with colostomy., Hx Cardiac Surgery - Cardiac ablation for A fib, Hx Colostomy, Hx Ileostomy, Other - Patient had left chest port with "removal due to clot - Immunizations Immunizations up to date: Yes Hx Diphtheria, Pertussis, Tetanus Vaccination: Yes Review of Systems - Review of Systems Constitutional: No symptoms reported EENT: No symptoms reported Cardiovascular: No symptoms reported Respiratory: No symptoms reported Gastrointestinal: See HPI, Abdomen distended, Abdominal pain, Constipation Genitourinary: No symptoms reported Male Genitourinary: No symptoms reported Musculoskeletal: No symptoms reported Skin: No symptoms reported Hematologic/Lymphatic: No symptoms reported Neurological/Psychological: No symptoms reported -: Yes All other systems reviewed and negative Physical Exam - Vital signs Vitals: Temp Pulse Resp BP Pulse Ox 98.2 F 73 18 163/79 H 97 05/15/20 08:18 05/15/20 08:18 05/15/20 08:18 05/15/20 08:18 05/15/20 08:18 - General General appearance: Alert In distress: None - HEENT Head: Normocephalic, Atraumatic Eyes: Normal Extraocular movements intact: Yes Pupils: PERRL Mucous membranes: Dry Neck: Normal, Supple - Cardiovascular Rhythm: Regular Heart sounds: Normal auscultation Murmur: No Friction rub: No Gallop: None auscultated Pulses: Decreased: Radial - Abdominal Inspection: Other - Ileostomy present Distension: Distended Tenderness: Tender - Mostly tender to palpate in the left abdomen Organomegaly: No organomegaly - Back Back: Normal, Nontender - Extremities General upper extremity: Normal inspection General lower extremity: Normal inspection. No: Edema - Neurological Neuro grossly intact: Yes Orientation: AAOx4 Rukhsana Coma Scale Eye Opening: Spontaneous Rukhsana Coma Scale Verbal: Oriented Byars Coma Scale Motor: Obeys Commands Byars Coma Scale Total: 15 - Psychological Associated symptoms: Normal affect, Normal mood - Skin Skin Temperature: Warm Skin Moisture: Dry Skin Color: Normal Course - Re-evaluation Re-evalutation: 05/15/20 16:[address] scan did show small bowel obstruction, however after the patient got back from CT scanner, he started getting liquid stool and gas into his ostomy bag, his abdomen decompressed some, and his pain went away. We will give him half a bottle of mag citrate to drink with several glasses of water and then reevaluate. - Vital Signs Vital signs: Temp Pulse Resp BP Pulse Ox 98.2 F 73 18 163/79 H 97 05/15/20 08:18 05/15/20 08:18 05/15/20 08:18 05/15/20 08:18 05/15/20 08:18 - Laboratory Results Result Diagrams: 05/15/20 09:20 05/15/20 09:20 Laboratory Results Interpreted: 05/15/20 05/15/20 05/15/20 09:20 09:20 13:57 WBC 11.3 H Hgb 12.6 L Hct 37.0 L Lymph % (Auto) 8.0 L Absolute Neuts (auto) 9.3 H Seg Neutrophils % 81.8 H Sodium 136.4 L Chloride 96 L Carbon Dioxide 33 H Creatinine 1.27 H Est GFR (MDRD) Non-Af 57 L Glucose 175 H Urine Ketones 25 H Critical Laboratory Results Reviewed: No Critical Results - Radiology Results Radiology Results Interpreted: 05/15/20 09:30 Acute abdominal series shows dilated loops of small bowel with air-fluid levels appears to be distal small bowel obstruction. 05/15/20 16:10 CT scan of the abdomen pelvis with IV and oral contrast shows a small bowel obstruction. Critical Radiology Results Reviewed: Yes Attending or Supervising Physician who Reviewed Radiology: HETAL MONTOYA Discharge - Discharge Clinical Impression: Small bowel obstruction, Dehydration Condition: Stable Disposition: HOME, SELF-CARE Additional Instructions: The small bowel obstruction you developed was probably due to constipation from the cheese that you ate last weekend. Be sure to drink plenty of fluids today. Take MiraLAX every day to keep your bowels soft and moving. Follow-up with a local primary care provider as needed. RETURN TO THE EMERGENCY ROOM IF ANY NEW OR WORSENING SYMPTOMS. Referrals: RONDA PINEDA MD [Primary Care Provider] - Follow up as needed I personally performed the services described in the documentation, reviewed and edited the documentation which was dictated to the scribe in my presence, and it accurately records my words and actions.
[2020-05-15 14:40] LABS: APPEARANCE,URINE CLEAR; BILIRUBIN,URINE NEGATIVE (NEGATIVE); COLOR,URINE YELLOW; GLUCOSE, URINE NEGATIVE (NEGATIVE); KETONES,URINE 25 mg/dL (NEGATIVE); LEUKOCYTE ESTERASE,URINE NEGATIVE (NEGATIVE); NITRITE,URINE NEGATIVE (NEGATIVE); PROTEIN,URINE NEGATIVE (NEGATIVE); UROBILINOGEN,URINE NEGATIVE mg/dL (<2.0)
--- NOTE | 2020-05-15 16:04 | RADIOLOGY REPORT (SQ) ---
EXAM DESCRIPTION: CT ABD/PELVIS WITH IV ORAL IMAGES COMPLETED DATE/TIME: 05/15/2020 3:45 pm REASON FOR STUDY: SBO, total colectomy, ileostomy COMPARISON: 04/02/2017 TECHNIQUE: CT scan of the abdomen and pelvis performed using helical scanning technique with dynamic intravenous contrast injection. No oral contrast. Images reviewed with lung, soft tissue, and bone windows. Reconstructed coronal and sagittal MPR images reviewed. Delayed images for evaluation of the urinary system also acquired. All images stored on PACS. All CT scanners at this facility use dose modulation, iterative reconstruction, and/or weight based d osing when appropriate to reduce radiation dose to as low as reasonably achievable (ALARA). [facility]: Dose Right [facility]: CareDose [facility]: Dose Right [facility]: Teradose 4D [facility]: myhub CONTRAST TYPE AND DOSE: contrast/concentration: Isovue 350.00 mmol/ml; Total Contrast Delivered: 85. 0 ml; Total Saline Delivered: 50.0 ml RENAL FUNCTION: BUN 16, creatinine 1.27 RADIATION DOSE: CT Rad equipment meets quality standard of care and radiation dose reduction techniq ues were employed. CTDIvol: 6.4 - 9.0 mGy. DLP: 1314 mGy-cm.. LIMITATIONS: None. FINDINGS: LOWER CHEST: No significant findings. No nodules or infiltrates. LIVER: Steatosis. No focal masses SPLEEN: Normal size. No focal lesions. PANCREAS: No masses. No significant calcifications. No adjacent inflammation or peripancreatic fluid collections. Pancreatic duct not dilated. GALLBLADDER: Distended gallbladder with stones. Small amount of pericholecystic and perihepatic flui d. ADRENAL GLANDS: No significant masses or asymmetry. RIGHT KIDNEY AND URETER: No solid masses. No significant calcifications. No hydronephrosis or hyd roureter. LEFT KIDNEY AND URETER: No solid masses. No significant calcifications. No hydronephrosis or hydr oureter. AORTA AND VESSELS: No aneurysm. No dissection. Renal arteries, SMA, celiac without stenosis. RETROPERITONEUM: No retroperitoneal adenopathy, hemorrhage or masses. BOWEL AND PERITONEAL CAVITY: Postsurgical changes. Prior total colectomy. Dilated small bowel with scattered air-fluid levels. There are 1 to 2 small bowel loops in the right lower quadrant which pancho ear nondistended. No free air. APPENDIX: Surgically absent. PELVIS: Distended bladder. Asymmetric soft tissue in the presacral space. Recurrent neoplasm cannot be excluded. This is most evident on series 3 images 66 through 77. ABDOMINAL WALL: No masses. No hernias. BONES: No significant or acute findings. OTHER: No other significant finding. IMPRESSION: Findings are consistent with small-bowel obstruction. Probable transition point in the right lower quadrant. No free air. Cholelithiasis. Small amount of free fluid surrounding the gallbladder and inferior margin of the li jordan. Asymmetric soft tissue in the presacral space on the right. Metastatic disease cannot be excluded. TECHNICAL DOCUMENTATION: JOB ID: [id number] Quality ID # [id number]: Final reports with documentation of one or more dose reduction techniques (e.g., Au tomated exposure control, adjustment of the mA and/or kV according to patient size, use of iterative reconstruction technique) 2010 [employer]- All Rights Reserved Reading location - IP/workstation name: [email or web address]
[2020-05-15] MEDS ORDERED: MAGNESIUM CITRATE 296 ML BOTTLE PO ONE (16:07)
[2020-05-15 18:09] VITALS: BP 175/66
== END 2020-05-15 18:09 | disposition home or self-care (01) ==
LOC: ER 08:14
DX: K56.609 Unspecified intestinal obstruction, unspecified as to partial versus complete obstruction (principal); E86.0 Dehydration; R10.9 Unspecified abdominal pain; I48.91 Unspecified atrial fibrillation; Z79.01 Long term (current) use of anticoagulants; Z93.2 Ileostomy status
CPT/HCPCS: 99285; 96360; 96361; 36415; 82550; 83735; 85025; 80053; 81001; 74022; 74177; A9270; J7030; J3490

== ENCOUNTER → 2020-05-20 | Outpatient (CLI) | payer MEDICARE, OTHER ==
[2020-05-20 10:59] LABS: APPEARANCE,URINE CLEAR; BILIRUBIN,URINE NEGATIVE (NEGATIVE); COLOR,URINE YELLOW; GLUCOSE, URINE 50 mg/dL (NEGATIVE); KETONES,URINE NEGATIVE (NEGATIVE); LEUKOCYTE ESTERASE,URINE NEGATIVE (NEGATIVE); NITRITE,URINE NEGATIVE (NEGATIVE); PROTEIN,URINE NEGATIVE (NEGATIVE); URINE SPECIFIC GRAVITY 1.009; UROBILINOGEN,URINE NEGATIVE mg/dL (<2.0)
[2020-05-20 11:36] LABS: HEMOGLOBIN 12.4 g/dL (13.5-17.0); MEAN CORPUSCULAR HEMOGLOBIN 28.4 pg (27.0-33.4); MEAN CORPUSCULAR HGB CONC 33.6 g/dL (32.0-36.0); MEAN CORPUSCULAR VOLUME 85 fl (80-97); PLATELET COUNT 388 10^3/uL (150-450); RED BLOOD COUNT 4.37 10^6/uL (4.35-5.55); RED CELL DISTRIBUTION WIDTH 13.1 % (11.5-14.0); WHITE BLOOD COUNT 7.5 10^3/uL (4.0-10.5)
[2020-05-20 12:06] LABS: ALBUMIN 4.6 g/dL (3.5-5.0); ALKALINE PHOSPHATASE 102 U/L (38-126); ANION GAP 9 (5-19); ASPARTATE AMINO TRANSFERASE 29 U/L (17-59); BILIRUBIN,DIRECT 0.4 mg/dL (0.0-0.4); BILIRUBIN,TOTAL 0.4 mg/dL (0.2-1.3); BLOOD UREA NITROGEN 14 mg/dL (7-20); CALCIUM 10.1 mg/dL (8.4-10.2); CARBON DIOXIDE 31 mmol/L (22-30); CHLORIDE 99 mmol/L (98-107); GLUCOSE 105 mg/dL (75-110); TOTAL PROTEIN 8.2 g/dL (6.3-8.2)
== END ==
LOC: OD 10:11
PROVIDERS: ATTEND Internal Medicine Cardiovascular Disease
DX: I48.92 Unspecified atrial flutter (principal); Z79.01 Long term (current) use of anticoagulants; Z79.899 Other long term (current) drug therapy
CPT/HCPCS: 36415; 80048; 80076; 81001; 83735; 85027; 85730